=== PATIENT | male | born 1975 | race Caucasian/White ===

== ENCOUNTER 2017-06-11 11:27 | Outpatient (CLI) | payer OTHER | END 2017-06-11 11:28 | disposition home or self-care (01) | LOC: LAB 11:27 | PROVIDERS: ATTEND Emergency Medicine | DX: M05.79 Rheumatoid arthritis with rheumatoid factor of multiple sites without organ or systems involvement (principal); E66.9 Obesity, unspecified | CPT/HCPCS: 36415; 80053; 80061; 85025 ==

== ENCOUNTER 2017-10-02 09:58 | Outpatient (CLI) ==
--- NOTE | 2017-10-02 10:45 | DI ---
EXAM: Two views of the left hip. History: Left hip pain. Findings: No acute fracture or dislocation. No abnormal calcifications or radiopaque foreign bodies . Joint spaces are preserved. Impression: Unremarkable exam
--- NOTE | 2017-10-02 10:50 | DI ---
EXAM: Two views of the right hip. History: Right hip pain. Findings: No acute fracture or dislocation. No abnormal calcifications or radiopaque foreign bodies . Joint spaces are preserved. Impression: Unremarkable exam
--- NOTE | 2017-10-02 10:51 | DI ---
EXAM: Two views of the left knee. History: Left knee pain. Findings: No acute fracture or dislocation. No abnormal calcifications or radiopaque foreign bodies . Joint spaces are preserved. Suggestion of varicose veins. Impression: 1. No acute osseous abnormality and no degenerative joint disease. 2. Probable varicose veins.
--- NOTE | 2017-10-02 10:54 | DI ---
EXAM: Two views of the right knee. History: Right knee pain. Findings: No acute fracture or dislocation. No abnormal calcifications or radiopaque foreign bodies . Joint spaces are preserved. There is suggestion of varicose veins. Impression: 1. No acute osseous abnormality and no degenerative joint disease. 2. Probable varicose veins.
== END 2017-10-02 09:59 | disposition home or self-care (01) ==
LOC: RAD 09:58
PROVIDERS: ATTEND Pain Medicine Interventional Pain Medicine
DX: M25.551 Pain in right hip (principal); M25.552 Pain in left hip; M16.0 Bilateral primary osteoarthritis of hip; M25.561 Pain in right knee; M25.562 Pain in left knee; M17.0 Bilateral primary osteoarthritis of knee

== ENCOUNTER 2019-06-10 23:18 | Observation (INO) ==
[2019-06-10] MEDS ORDERED: ASPIRIN CHEWABLE PO STA (23:48)
--- NOTE | 2019-06-10 23:57 | ED.PDOC ---
General ED Provider: Dr. BENJAMÍN HERNANDEZ Chief Complaint: Chest Pain Stated Complaint: [facility] when his blood pressure was noted to be high in the 240s/160' he had to wait until his blood pressure came down before getting his injections. Tonight he started having chest pain and noted that his blood pressure was still elevated. Time Seen by Physician: 23:35 Mode of Arrival: Walk-In Information Source: Patient and Family Primary Care Provider: DIANNE ARCHER APRN Nursing and Triage Documentation Reviewed and Agree: Yes Does patient meet sepsis criteria?: Yes If yes, has appropriate treatment been initiated?: No System Inflammatory Response Syndrome: Not Applicable Sepsis Protocol: For patient's 13 years and over: Temp is 96.8 and below OR 101 and greater Pulse >90 BPM Resp >20/minute Acutely Altered Mental Status Are patient's symptoms suggestive of a new infection, such as: -Pneumonia -Skin, Soft Tissue -Endocarditis -UTI -Bone, Joint Infection -Implantable Device -Acute Abdominal Infection -Wound Infection -Meningitis -Blood Stream Catheter Infection -Unknown Cardiovascular Complaint Exam Chest Pain Complaint/Exam Onset: Sudden Duration: 1 day Symptoms Are: Still present Timing: Constant Initial Severity: Moderate Current Severity: Mild Location: Reports Midsternal Pain Radiates: Reports Left arm Character: Reports Pressure Aggravating: Reports None Alleviating: Reports None Associated Signs and Symptoms: Denies Diaphoresis, Nausea, Vomiting, Fever, Palpitations, Cough, Hemoptysis, Back pain, Abdominal pain, Dizziness, Short of air, Calf pain and Calf swelling Recent Stress Test: No Recent Echo/LV Function: No JVD Present: No Subcutaneous Emphysema Present: No Diminshed Breath Sounds: No Reproducible Chest Wall Pain: No Bilateral Pulses Present: No Unequal Pulses Noted: No Chest Picture: 1. area of chest pain today. none now If Risk Factors for AMI/ACS Consider: EKG, Cardiac Enzymes, Serial Studies and Aspirin Differential Diagnoses: Acute FL Quality Indicators For Acute FL or Cardiac Chest Pain: EKG in 10min. and ASA if indicated Patient Advised to Stop Smoking: Yes Review of Systems Review Of Systems Constitutional: Reports No symptoms Eyes: Reports No symptoms Ears, Nose, Mouth, Throat: Reports No symptoms Respiratory: Reports No symptoms Cardiac: Reports Chest pain GI: Reports No symptoms : Reports No symptoms Musculoskeletal: Reports No symptoms Skin: Reports No symptoms Neurological: Reports Anxiety Endocrine: Reports No symptoms Hematologic/Lymphatic: Reports No symptoms All Other Systems: Reviewed and Negative PFSH Family History (Updated 06/11/19 @ 00:40 by TIBURCIO BILLY LPN) FATHER Alcoholism Coronary artery arteriosclerosis Mother Brain aneurysm FATHER Heart problem COPD with emphysema Social History Smoking and tobacco status: Never smoker Alcohol intake: current Alcohol intake frequency: holidays/special occasions only Alcohol type: beer Counseling given: No Counseling provided: none Substance use type: does not use Counseling given: No Counseling provided: none Sariah/mormonism: NONE Special sariah needs: No Agree to transfusion: Yes Adopted: No Caregiver/support person: No Foster care: No Household members: friend(s) Housing: house Marital status: X LEGALLY Lives independently: No Daycare: no daycare Number of children: 1 Number of grandchildren: 0 Highest education level completed: 11th grade Financial difficulty paying for basics: somewhat hard service: No longterm: No Current occupational status: disabled Current occupational exposures/hazards: No Pets and animals: No Leisure activites: music and fishing History of recent travel: No Sexually active: No Do you think of yourself as: straight/heterosexual Current gender identity: male Seatbelt use: always Helmet use: No Drives intoxicated or rides with intoxicated route relief driver: No Current diet type/program: regular Well-balanced diet: rarely Caffeine: Yes Eating out: 1-3 times/week Reads food labels: seldom or never During the past year weight has: remained stable Water heater temperature set < 120 degrees: Yes Working smoke detector in home: Yes Fire extinguisher in home: Yes Carbon monoxide detector in home: Yes Firearms in home: No What type of physical activity do you participate in?: walking and other Physical activity functional status: independent ambulation How many days of moderate to strenuous exercise, like a brisk walk, did you do in the last 7 days: 1 Physical Exam Physical Exam Appearance: Reports Ill-appearing and Obese Ill-appearing: Mild Pain Distress: Mild Eyes: Reports TORRES, EOMI and Conjunctiva clear ENT: Reports Nose normal and Oropharynx normal Neck: Supple Respiratory: Reports Airway patent, Breath sounds clear, Breath sounds equal and Breath sounds diminished Cardiovascular: Reports RRR, Pulses normal, No rub and No murmur GI/: Reports Soft, Nontender, No masses and Bowel sounds normal Musculoskeletal: Reports Normal strength, ROM intact and No edema Skin: Reports Warm and Dry Neurological: Reports Sensation intact, Motor intact, Alert and Oriented Psychiatric: Reports Anxious Interpretation Radiology Interpretation Radiology Interpretation By: ED Physician Radiology Results: Negative Exam Interpreted: Portable CXR President And Chief Executive Officer Time of President And Chief Executive Officer Interpretation: 23:52 Rate: Normal Rhythm: Sinus Ectopy: None EKG Interpretation Time of EKG #1: 23:36 Rate: Normal (with sinus Arrythmia) Rhythm: Sinus Ectopy: None [place]: [place] ST Segment: Normal Interpretation: Normal sinus Rhythm with sinus Arrhythmia. Re-Evaluation Re-Evaluation Time of Re-Evaluation: 00:47 Status: Improved Vital Signs Stable: Yes (bp 147/99 after Labetolol) Pain Level: no more pain Physician Notification Case Discussed Physician Notified: Jesenia CAMPBELL Time of Notification: 00:50 Critical Care Note Critical Care Note Total Time (mins): 35 Course Course Hematology/Chemistry: 06/10/19 00:03 06/10/19 00:03 Orders, Labs, Meds: Lab Review 06/10/19 06/10/19 00:03 00:03 WBC 10.54 H RBC 5.70 Hgb 16.4 Hct 48.7 MCV 85.4 MCH 28.8 MCHC 33.7 RDW Coeff of Rachael 12.5 Plt Count 294 Immature Gran % (Auto) 0.5 Neut % (Auto) 88.1 H Lymph % (Auto) 7.7 L [place] % (Auto) 3.5 Eos % (Auto) 0.0 Baso % (Auto) 0.2 Immature Gran # (Auto) 0.1 Neut # (Auto) 9.3 H Lymph # (Auto) 0.8 [place] # (Auto) 0.4 Eos # (Auto) 0.0 Baso # (Auto) 0.0 Sodium 137.6 Potassium 3.87 Chloride 106.1 Carbon Dioxide 23.9 Anion Gap 11.47 BUN 14.3 Creatinine 0.82 Estimated GFR (MDRD) 102.00 BUN/Creatinine Ratio 17.43 Glucose 237.1 H Calcium 9.92 Total Bilirubin 0.45 AST 35.1 ALT 30.5 Alkaline Phosphatase 115.0 Total Creatine Kinase 60.5 Troponin I < 0.012 Total Protein 7.59 Albumin 4.19 Globulin 3.40 Albumin/Globulin Ratio 1.23 Orders Category Date Time Status EKG-(ED ONLY) Stat CARDIO 06/10/19 23:48 Ordered ACTIVITY .Up ad Svetlana CARE 06/11/19 00:21 Active INTAKE & OUTPUT Q8HR CARE 06/11/19 00:20 Active NOTIFY PHYSICIAN OF CONSULT ONCE CARE 06/11/19 00:30 Active VITAL SIGNS Q4HR CARE 06/11/19 00:20 Active CONSULT DOCTOR [PHYSICIAN CONSULTATION] [CONS] Stat CONSULTS 06/11/19 00:30 Ordered 2 GRAM SODIUM DIET DIETARY 06/11/19 Breakfast Ordered ED ACCUCHECK ASSESSMENT .ONCE EMERGENCY 06/11/19 00:42 Active ED CLINICAL SPECIALIST VASCULAR APPLIED .ONCE EMERGENCY 06/10/19 23:48 Active ED IV/MEDIPORT/POWERPORT .ONCE EMERGENCY 06/10/19 23:48 Active IV [ED IV/MEDIPORT/POWERPORT] .ONCE EMERGENCY 06/10/19 23:47 Active BASIC METABOLIC PANEL DAILY@0600 LAB 06/11/19 06:00 Ordered BASIC METABOLIC PANEL DAILY@0600 LAB 06/12/19 06:00 Ordered CBC W/ AUTO DIFF DAILY@0600 LAB 06/11/19 06:00 Ordered CBC W/ AUTO DIFF DAILY@0600 LAB 06/12/19 06:00 Ordered CBC W/ AUTO DIFF Stat LAB 06/10/19 00:03 Completed COMPREHENSIVE METABOLIC PANEL Stat LAB 06/10/19 00:03 Completed CREATINE KINASE Q8H LAB 06/11/19 06:30 Ordered CREATINE KINASE Q8H LAB 06/11/19 14:30 Ordered CREATINE KINASE Stat LAB 06/10/19 00:03 Completed HEMOGLOBIN A1C Routine LAB 06/11/19 00:42 Ordered TROPONIN I Q8H LAB 06/11/19 06:30 Ordered TROPONIN I Q8H LAB 06/11/19 14:30 Ordered TROPONIN I Stat LAB 06/10/19 00:03 Completed TROPONIN I Stat LAB 06/11/19 01:00 Ordered 0.9 % Sodium Chloride [Saline Flush] MEDS 06/10/19 23:47 Active 1 syr IVF PRN PRN 0.9 % Sodium Chloride [Saline Flush] MEDS 06/10/19 23:48 Active 1 syr IVF PRN PRN Acetaminophen [Tylenol] MEDS 06/11/19 00:23 Active 650 mg PO Q4H PRN Aspirin [Aspirin Chewable] MEDS 06/10/19 23:48 Discontinued 324 mg PO ONCE STA Cyclobenzaprine HCl [Flexeril] MEDS 06/11/19 21:00 Ordered 10 mg PO BEDTIME Cyclobenzaprine HCl [Flexeril] MEDS 06/11/19 00:35 Ordered 10 mg PO DAILY PRN Enoxaparin Sodium [Lovenox] MEDS 06/11/19 09:00 Active 40 mg SUBCUT DAILY Fluticasone Propionate [Flonase] MEDS 06/11/19 09:00 Ordered 2 spray NALLELY DAILY Folic Acid MEDS 06/11/19 09:00 Ordered 1 mg PO DAILY Hydrocodone-Acetamin 10-325 Mg MEDS 06/11/19 00:35 Ordered 1 each PO Q4-6H PRN Labetalol HCl [Trandate] MEDS 06/11/19 00:11 Discontinued 10 mg IVP ONCE STA Labetalol HCl [Trandate] MEDS 06/11/19 00:29 Discontinued 5 mg IVP ONCE STA Methotrexate Sodium [Rheumatrex] MEDS 06/11/19 01:00 Ordered 2.5 mg PO 5 tabs once a week Morphine Sulfate [Morphine 2 mg/ml Syringe] MEDS 06/11/19 00:23 Active 2 mg IVP Q4H PRN Ondansetron HCl/Pf [Zofran 4 mg/2 ml] MEDS 06/11/19 00:23 Active 4 mg IVP Q6H PRN Sulfasalazine [Azulfidine] MEDS 06/11/19 09:00 Ordered 1,000 mg PO BID hydrochlorothiazide MEDS 06/11/19 09:00 Ordered 12.5 mg PO DAILY nabumetone MEDS 06/11/19 09:00 Ordered 500 mg PO BID RESUSCITATION STATUS Routine OTHERS 06/11/19 00:18 Ordered CHEST, 1V AP ONLY Stat RADS 06/10/19 23:48 Taken Medications Generic Name Dose Route Start Last Admin Trade Name Freq PRN Reason Stop Dose Admin Acetaminophen 650 mg 06/11/19 00:23 Tylenol PO Q4H PRN fever Cyclobenzaprine HCl 10 mg 06/11/19 00:35 Flexeril PO DAILY PRN Spasms Cyclobenzaprine HCl 10 mg 06/11/19 21:00 Flexeril PO BEDTIME HELEN Enoxaparin Sodium 40 mg 06/11/19 09:00 Lovenox SUBCUT DAILY [facility] Fluticasone Propionate 2 spray 06/11/19 09:00 Flonase NALLELY DAILY [facility] Folic Acid 1 mg 06/11/19 09:00 Folic Acid PO DAILY [facility] Methotrexate 2.5 mg 06/11/19 01:00 Rheumatrex PO 5 tabs once a week [facility] Morphine Sulfate 2 mg 06/11/19 00:23 Morphine 2 Mg/Ml Syringe IVP Q4H PRN Severe Pain Non-Formulary Medication 12.5 mg 06/11/19 09:00 Hydrochlorothiazide PO DAILY [facility] Non-Formulary Medication 1 each 06/11/19 00:35 Hydrocodone-Acetamin 10-325 Mg PO Q4-6H PRN moderate pain Non-Formulary Medication 500 mg 06/11/19 09:00 Nabumetone PO BID [facility] Ondansetron HCl 4 mg 06/11/19 00:23 Zofran 4 Mg/2 Ml IVP Q6H PRN Nausea / Vomiting Sodium Chloride 1 syr 06/10/19 23:47 06/10/19 23:53 Saline Flush IVF 1 syr PRN PRN Administration To flush IV Sodium Chloride 1 syr 06/10/19 23:48 06/11/19 00:28 Saline Flush IVF 1 syr PRN PRN Administration To flush IV Sulfasalazine 1,000 mg 06/11/19 09:00 Azulfidine PO BID [facility] Discontinued Medications Generic Name Dose Route Start Last Admin Trade Name Freq PRN Reason Stop Dose Admin Aspirin 324 mg 06/10/19 23:48 06/10/19 23:53 Aspirin Chewable PO 06/10/19 23:49 324 mg ONCE STA Administration Labetalol HCl 10 mg 06/11/19 00:11 06/11/19 00:28 Trandate IVP 06/11/19 00:12 Not Given ONCE STA Labetalol HCl 5 mg 06/11/19 00:29 06/11/19 00:29 Trandate IVP 06/11/19 00:30 5 mg ONCE STA Administration Vital Signs: Temp Pulse Resp BP Pulse Ox 06/11/19 00:31 71 20 153/97 H 94 L 06/10/19 23:28 98.1 F 94 H 18 204/123 H 97 CHANDNI Risk Score Age >/= 65: No Known CAD (Stenosis >/= 50%): No ASA Use in Past 7 Days: No Severe Angina (>/= 2 episodes in 24 hours): Yes EKG ST Changes >/= 0.5mm: No Postive Cardiac Marker: No CHANDNI Total Score: 1 CHANDNI Risk Score: Risk Score Odds of by 30D 0 0.1 (0.1-0.2) 1 0.3 (0.2-0.3) 2 0.4 (0.3-0.5) 3 0.7 (0.6-0.9) 4 1.2 (1.0-1.5) 5 2.2 (1.9-2.6) 6 3.0 (2.5-3.6) 7 4.8 (3.8-6.1) Discharge Plan Discharge Patient Disposition: HOME SELF-CARE Discharge Problem: Chest pain, Hypertensive crisis Prescriptions: No Action HYDROCODONE-ACETAMIN 10-325 MG 1 EACH tablet 1 ea PO Q4-6H PRN (Reason: Pain) RF: 0 hydrochlorothiazide 12.5 mg Capsule 12.5 mg PO DAILY RF: 0 cyclobenzaprine 10 mg tablet 10 mg PO DAILY PRN (Reason: Spasms) RF: 0 sulfasalazine 500 mg tablet 1,000 mg PO BID RF: 0 cyclobenzaprine 10 mg Tablet 10 mg PO BEDTIME RF: 0 nabumetone 500 mg tablet 500 mg PO BID 30 Days Qty: 60 RF: 2 methotrexate sodium 2.5 mg tablet 2.5 mg PO 5 tabs once a week Qty: 25 RF: 2 fluticasone propionate [Flonase Allergy Relief] 50 mcg/actuation spray,suspension 2 spray intranasal DAILY Qty: 1 RF: 1 folic acid 1 mg tablet 1 mg PO DAILY 30 Days Qty: 30 RF: 2 ED Provider: BENJAMÍN HERNANDEZ Condition: Fair
[2019-06-11 00:09] LABS: HEMATOCRIT 48.7 % (42.0-52.0)
[2019-06-11] MEDS ORDERED: TRANDATE IVP STA ×3 (00:11→16:36)
[2019-06-11] MEDS ORDERED: MORPHINE 2 MG/ML SYRINGE IVP PRN ×2 (00:23→08:18)
[2019-06-11] MEDS ORDERED: TYLENOL PO PRN (00:23)
[2019-06-11] MEDS ORDERED: ZOFRAN 4 MG/2 ML IVP PRN (00:23)
[2019-06-11] MEDS ORDERED: FLEXERIL PO PRN (00:35)
--- NOTE | 2019-06-11 00:56 | DI ---
EXAM: Chest, one-view HISTORY: Chest Pain FINDINGS: Cardiac and mediastinal contours are normal. Pulmonary vasculature is normal. Lungs are clear. Bony thorax is unremarkable. IMPRESSION: Within normal limits
[2019-06-11] MEDS ORDERED: NORCO 10-325 PO PRN (01:16)
[2019-06-11 01:46] VITALS: BMI 48.7
[2019-06-11 06:25] LABS: HEMATOCRIT 47.6 % (42.0-52.0)
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
[2019-06-11] MEDS ORDERED: FLONASE NAS SCH (09:00)
[2019-06-11] MEDS: LOVENOX SUBCUT SCH (09:14)
[2019-06-11] MEDS: RELAFEN PO SCH ×2 (09:16→17:34)
[2019-06-11] MEDS: FOLIC ACID PO SCH (09:16)
[2019-06-11] MEDS: HYDROCHLOROTHIAZIDE PO SCH (09:17)
[2019-06-11] MEDS: AZULFIDINE PO SCH ×2 (09:18→20:24)
--- NOTE | 2019-06-11 10:39 | PCM.CONS ---
CONSULTING PROVIDER: Dr. JENNIFER THOMAS ATTENDING PROVIDER: Dr. JENNY EUGENE DATE OF SERVICE: 06/11/19 SUBJECTIVE: This 43 year old /WHITE M was hospitalized 06/11/19. He was seen on consultation for evaluation of chest pain. The patient developed hypertension in the [facility], Dr. Woods's office yesterday. Systolic was more than 230. In ER the patien twas given Labetalol 10mg. The patient's father has history of DC at a young age. He had gastric sleeve surgery done in 2013. No other significant past medical history. The patient's PCP is Christina Freire. REVIEW OF SYSTEMS: CONSTITUTIONAL: No night sweats. No fatigue, malaise, lethargy. No fever or chills. HEENT: Eyes: No visual changes. No eye pain. No eye discharge. ENT: No runny nose. No epistaxis. No sinus pain. No odynophagia. No congestion. RESPIRATORY: No cough, no congestion. No hemoptysis. No shortness of breath. CARDIOVASCULAR: No angina symptoms. No CHF symptoms. No atypical chest pain for CAD. No palpitations. No orthopnea. GASTROINTESTINAL: No abdominal pain. No nausea or vomiting. No diarrhea or constipation. No hematemesis. No hematochezia. GENITOURINARY: No urgency. No frequency. No dysuria. No hematuria. No obstructive symptoms. No discharge. No pain. No significant abnormal bleeding. MUSCULOSKELETAL: No musculoskeletal pain; no joint swelling. NEUROLOGICAL: Awake, alert, oriented to time, place and person. No headache. No neck pain. No syncope. No seizures. No dizziness. PSYCHIATRIC: Not anxious. No depression. No suicidal thoughts. No homicidal thoughts. SKIN: No rash. No lesions. No wounds. ENDOCRINE: No unexplained weight loss. No weight gain. HEMATOLOGIC/LYMPHATIC: No anemia. No purpura. No petechiae. No prolonged or exce ssive bleeding. No palpable lymph nodes. PHYSICAL EXAMINATION: GENERAL: The patient is awake, alert and oriented, lying in bed in no distress. VITAL SIGNS: Temperature 97.8 F, Pulse 57, Respiratory Rate 18, BP 120/64, Pulse Ox 98% HEENT: Head normocephalic, atraumatic. Eyes: Extraocular muscles are intact. Pupils are equal, round and reactive to light and accommodation. Ears: No lesions. Nose appeared normal. Throat: No exudate or erythema. NECK: Supple. No JVD, no carotid bruit. No lymphadenopathy or thyromegaly. LUNGS: Clear to auscultation. Percussion note normal. Chest symmetrical. HEART: S1, S2, no S3. No murmurs. No cyanosis or clubbing. No ascites. Pulses: Dorsalis pedis and posterior tibial pulses +2 both sides, strong. EKG was sinus rhythm. No acute changes Cardiac markers are negative. Lipid profile unknown. ABDOMEN: Protuberant. Soft. Non-tender. Bowel sounds active. No CVA tenderness. No mass felt. EXTREMITIES: No edema. Full range of motion of all extremities, equal. NEUROLOGIC: No focal deficit. Cranial nerves II through XII are grossly intact. No headache, no double vision or headache. SKIN: Warm and dry. Intact. Turgor-normal. LYMPHATIC: No palpable lymph nodes/no lymphedema. MUSCULOSKELETAL: Normal joints with no swelling. Muscle tone is normal. LAB REVIEW: 06/11/19 06:16 06/11/19 06:16 06/11/19 06:16: Sodium 137.7, Potassium 3.60, Chloride 104.8, Carbon Dioxide 25.7, Anion Gap 10.80, BUN 13.3, Creatinine 0.72, Estimated GFR (MDRD) 119.00, BUN/Creatinine Ratio 18.47, Glucose 182.0 H, Calcium 9.29, Total Creatine Kinase 45.7 L, Troponin I < 0.012 06/11/19 06:16: WBC 10.32 H, RBC 5.57, Hgb 15.7, Hct 47.6, MCV 85.5, MCH 28.2, MCHC 33.0, RDW Coeff of Rachael 12.6, Plt Count 280, Immature Gran % (Auto) 0.2, Neut % (Auto) 79.1 H, Lymph % (Auto) 14.9, [place] % (Auto) 5.4, Eos % (Auto) 0.1, Baso % (Auto) 0.3, Immature Gran # (Auto) 0.0, Neut # (Auto) 8.2 H, Lymph # (Aut o) 1.5, [place] # (Auto) 0.6, Eos # (Auto) 0.0, Baso # (Auto) 0.0 06/11/19 00:03: Hemoglobin A1c 6.97 H 06/10/19 00:03: Sodium 137.6, Potassium 3.87, Chloride 106.1, Carbon Dioxide 23.9, Anion Gap 11.47, BUN 14.3, Creatinine 0.82, Estimated GFR (MDRD) 102.00, BUN/Creatinine Ratio 17.43, Glucose 237.1 H, Calcium 9.92, Total Bilirubin 0.45, AST 35.1, ALT 30.5, Alkaline Phosphatase 115.0, Total Creatine Kinase 60.5, Troponin I < 0.012, Total Protein 7.59, Albumin 4.19, Globulin 3.40, Albumin/Globulin Ratio 1.23 06/10/19 00:03: WBC 10.54 H, RBC 5.70, Hgb 16.4, Hct 48.7, MCV 85.4, MCH 28.8, MCHC 33.7, RDW Coeff of Rachael 12.5, Plt Count 294, Immature Gran % (Auto) 0.5, Neut % (Auto) 88.1 H, Lymph % (Auto) 7.7 L, [place] % (Auto) 3.5, Eos % (Auto) 0.0, Baso % (Auto) 0.2, Immature Gran # (Auto) 0.1, Neut # (Auto) 9.3 H, Lymph # (Auto) 0.8, [place] # (Auto) 0.4, Eos # (Auto) 0.0, Baso # (Auto) 0.0 ASSESSMENT: 1. Chest pain seems to be non-cardiac, left shoulder and left upper part of the chest. Tender to touch. Atypical for coronary insufficiency. 2. Morbid obesity 3. Diabetes Mellitus 4. Hypertension 5. Strong family history of heart disease 6. Gastric sleeve surgery 2013 RECOMMENDATIONS/PLAN: 1. Echo and stress echo 2. Lipid profile 3. Counseling done for modifications for coronary artery disease and risk factors. Plan and coordination of the patient's care discussed in the presence of Form Builder Helper and Nurse. Thanks for referral, will follow. SCRIBED BY: ROMEO ULLOA, Daycare Provider scribed while in presence of service performed by Dr. JENNIFER THOMAS on 06/11/19 ([id number])
--- NOTE | 2019-06-11 11:28 | PCM.PROG ---
During patient interview and exam this AM patient was confirmed a "full code" status as per ER admission and review of ACLS protocol. Patient had no other concerns or questions in regards to this subject and is currently improving.
--- NOTE | 2019-06-11 14:42 | PCM.PROG ---
Dr. Brain Greco, swabber, here after ECHO and stress test completed; notes findings suggestive of Normal Borderline Hypertrophic Cardiomyopathy w/ normal EF. Per Dr. Greco, we will con't HCTZ 12.5mg daily and add Losartan 50mg PO QAM and Pravachol 20mg PO Q HS. Will need Metformin when sees PCP for f-u appt. and treatment for diabetes as discussed w/ PCP. Patient to f-u w/ PCP and then w/ Learning Support Specialist only prn.
--- NOTE | 2019-06-11 15:05 | STRESSMOD ---
Date of Test: 06/11/19 Ordering Physician: JENNY GREENWOOD APRN/ [facility] Reason for Exam: CHEST PAIN, HTN, DM 2 Height: 72" Weight: 359 LBS Current Medications: FLEXERIL, LOVENOX, FLONASE, HCTZ, NORCO, HUMULIN R, MORPHINE, RELAFEN, ZOFRAN Resting EKG: SINUS RHYTHM/ NO ACUTE CHANGES Target Heart Rate: 149/176 S-T SEGMENT STAGE MPH/GRADE HEART RATE BPM BLOOD PRESSURE mmhg RHYTHM +/- ELEVATION DEPRESSION SYMPTOMS At Rest 68 BPM 134/86 MMHG SR X NONE 1 1.7/0% 96 BPM 158/76 MMHG SR X NONE 2 1.7/5% 110 BPM 168/72 MMHG SR X NONE 3 1.7/10% 128 BPM 174/64 MMHG SR X NONE 4 2.5/12% 5 3.4/14% Immediately After 145 BPM 184/74 MMHG SR X FATIGUE Minutes Post Exercise 5:00 84 BPM 158/78 MMHG SR X NONE Minutes Post Exercise DURATION OF EXERCISE: 10:18 MAXIMUM HEART RATE REACHED: 145 BPM REASON FOR TERMINATION: FATIGUE 99% OXYGEN SATURATION WITH EXERCISE ON ROOM AIR METS 7.0 INTERPRETATION: 1. NO EVIDENCE OF ISCHEMIA BY ST-T WAVE 2. NO CHEST PAIN OR DISCOMFORT 3. NO ARRHYTHMIAS 4. BLOOD PRESSURE RESPONSE NORMAL NORMAL LEFT VENTRICULAR CONTRACTILITY--RESTING AND POST EXERCISE MTDD
[2019-06-11] MEDS: COZAAR PO SCH (15:37)
[2019-06-11] MEDS: ASPIRIN EC PO SCH (15:37)
[2019-06-11] MEDS ORDERED: HUMULIN R SUBCUT SCH (17:00)
[2019-06-11] MEDS: HUMULIN R SUBCUT PRN ×2 (17:36→21:20)
[2019-06-11] MEDS ORDERED: FLEXERIL PO SCH (21:00)
[2019-06-11] MEDS ORDERED: PRAVACHOL PO SCH (21:00)
[2019-06-12 05:17] VITALS: BP 132/85; TEMP 97.5
[2019-06-12 05:55] LABS: HEMATOCRIT 49.3 % (42.0-52.0)
[2019-06-12] MEDS: FOLIC ACID PO SCH (08:38)
[2019-06-12] MEDS: AZULFIDINE PO SCH (08:38)
[2019-06-12] MEDS: HYDROCHLOROTHIAZIDE PO SCH (08:38)
[2019-06-12] MEDS: RELAFEN PO SCH (08:38)
[2019-06-12] MEDS: COZAAR PO SCH (08:38)
[2019-06-12] MEDS: ASPIRIN EC PO SCH (08:38)
[2019-06-12] MEDS: LOVENOX SUBCUT SCH (08:38)
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
--- NOTE | 2019-06-14 12:58 | ECHO2D ---
Date of Exam: 06/11/2019 Ordering Physician: JENNY GREENWOOD-HOSPITALIST Room #: 115 Reason for Echo: CHEST PAIN, HTN, DM M-Mode Normal Adult Results LV Dimensions Normal Adult Results AoV Opening excursions >1.6 >1.6 LVEDD-base- 3.5-5.8 5.7 Ao root dimensions 2.0-3.7 3.8 LVESD-base- 3.1-4.6 L. Atrium dimensions 1.9-3.8 5.0 Post. Wall thickness 0.8-1.1 1.3 IV septum (thickness) 0.7-1.2 1.3 Post. Wall excursion 0.72-1.3 NORMAL Septal motion NORMAL Systolic motion R. Ventricular cavity 1.5-2.0 NORMAL LVEF 60% 55% Paradoxical septal wall motion NORMAL 2-D : 2-D M Mode Echocardiogram was performed using apical four chamber and left parasternal long and short axis views. Mitral, tricuspid and aortic valves appear to be normal. Contractility of the left ventricle seems to be normal, so is the cavity size. ENLARGED LEFT ATRIAL CAVITY SIZE. Aortic root appears to be normal. There is no pericardial effusion. There is no thrombus noted in the left ventricle or left atrial cavity. No mitral valve prolapse noted. BORDERLINE LEFT VENTRICLE CAVITY. M-MODE: MV: NORMAL AV: NORMAL TV: NORMAL PV: CHAMBER SIZE: ENLARGED LEFT ATRIAL CAVITY SIZE, BORDERLINE LEFT VENTRICLE CAVITY WALL MOTION: NORMAL PERICARDIUM: NORMAL INTERPRETATION: 1. LEFT VENTRICLE HYPERTROPHY WITH ENLARGED LEFT ATRIAL CAVITY (5.0 CM) 2. BORDERLINE LEFT VENTRICLE CAVITY 3. NORMAL VALVES 4. NORMAL LEFT VENTRICLE CONTRACTILITY MTDD
--- NOTE | 2019-06-14 13:35 | ECHOSTRESS ---
Date of Exam: 06/11/2019 Ordering Physician: JENNY GREENWOOD--HOSPITALIST Reason for Echo: CHEST PAIN, HTN, DM, STRESS TEST--NO ISCHEMIA M-Mode Normal Adult Results LV Dimensions Normal Adult Results AoV Opening excursions >1.6 LVEDD-base- 3.5-5.8 Ao root dimensions 2.0-3.7 LVESD-base- 3.1-4.6 L. Atrium dimensions 1.9-3.8 Post. Wall thickness 0.8-1.1 IV septum (thickness) 0.7-1.2 Post. Wall excursion 0.72-1.3 Septal motion Systolic motion R. Ventricular cavity 1.5-2.0 LVEF 60% Paradoxical septal wall motion 2-D: NORMAL LEFT VENTRICULAR CONTRACTILITY--RESTING AND POST EXERCISE M-MODE: MV: AV: TV: PV: CHAMBER SIZE: NORMAL LEFT VENTRICULAR CONTRACTILITY--RESTING AND POST EXERCISE WALL MOTION: PERICARDIUM: INTERPRETATION: 1. NORMAL LEFT VENTRICULAR CONTRACTILITY--RESTING AND POST EXERCISE MTDD
[2019-06-15] MEDS ORDERED: RHEUMATREX PO SCH (09:00)
--- NOTE | 2019-06-15 09:52 | PN ---
06/11/2019: Extensive Level 5 MTDD
--- NOTE | 2019-06-15 10:14 | CONS ---
DATE OF SERVICE: 06/11/2019 CONSULT FOLLOWUP SUBJECTIVE: The patient was hospitalized with fairly atypical chest pain left sided more on movement of the shoulder. Later on in the afternoon after ruling out the patient acute myocardial event with normal EKG's and cardiac markers. The patient underwent echocardiogram which showed LVH and borderline LV cavity enlargement and enlarged LA cavity. Ejection fraction was normal. The patient exercised on modified Luca Protocol, fairly good exercise tolerance with METS level more than 8. No ST-T wave change. Blood pressure response was borderline no arrhythmias were noted. No ST-T wave changes were noted. Post exercise echo showed normal LV contractility. REVIEW OF SYSTEMS: CONSTITUTIONAL: No night sweats. No fatigue, malaise, lethargy. No fever or chills. HEENT: Eyes: No visual changes. No eye pain. No eye discharge. ENT: No runny nose. No epistaxis. No sinus pain. No sore throat. No odynophagia. No ear pain. No congestion. RESPIRATORY: No cough, no congestion. No hemoptysis. CARDIOVASCULAR: No angina symptoms. No CHF symptoms. No atypical chest pain for CAD. No palpitations. No shortness of breath. GASTROINTESTINAL: No abdominal pain. No nausea or vomiting. No diarrhea or constipation. No hematemesis. No hematochezia. GENITOURINARY: No urgency. No frequency. No dysuria. No hematuria. No obstructive symptoms. No discharge. No pain. No significant abnormal bleeding. MUSCULOSKELETAL: No musculoskeletal pain. No joint swelling. No arthritis. NEUROLOGICAL: No headache. No neck pain. No syncope. No seizures. No dizziness. PSYCHIATRIC: Not anxious. No depression. No suicidal thoughts. No homicidal thoughts. SKIN: No rash. No lesions. No wounds. ENDOCRINE: No unexplained weight loss. No weight gain. HEMATOLOGIC/LYMPHATIC: No anemia. No purpura. No petechiae. No prolonged or excessive bleeding. No palpable lymph nodes. PHYSICAL EXAMINATION: HEENT: Head normocephalic, atraumatic. Eyes: Extraocular muscles are intact. Pupils are equal, round and reactive to light and accommodation. Ears: No lesions. Nose appeared normal. Throat: No exudate or erythema. NECK: Supple. No JVD, no carotid bruit. No lymphadenopathy or thyromegaly. LUNGS: Clear to auscultation. Percussion note normal. Chest symmetrical. HEART: S1, S2, no S3. No murmur. No cyanosis or clubbing. No ascites. Pulses: Dorsalis pedis and posterior tibial pulses +1 to +2 bilaterally. ABDOMEN: Soft. Nontender. Bowel sounds active. No CVA tenderness. No mass felt. EXTREMITIES: No edema. Full range of motion of all extremities, equal. NEUROLOGIC: No focal deficit. Cranial nerves II through XII are grossly intact. No headache, no double vision or headache. SKIN: Not dry. Intact. Turgor - normal. LYMPHATIC: No palpable lymph nodes/no lymphedema. MUSCULOSKELETAL: Normal joints with no swelling. Muscle tone is normal. ASSESSMENT: 1. Chest pain- noncardiac with negative cardiac markers, EKG's and stress exercise echo with treadmill test. RECOMMENDATIONS: 1. The patient has lost from 600 pounds to 350. Advised to continue to go to the gym like he is doing three days a week. The patient has good exercise tolerance. The patient is advised to continue to lose weight. Counseling for diet done. 2. Pravachol 20mg daily. The patient's LDL is 115 with Diabetes Mellitus. The goal should be LDL of 70 or NON-HDL of 100. 3. The patient needs to be on ARB chang inhibitor with diabetes with hypertension. The patient is going to be on Hyzaar 50-12.5mg PO daily 4. Counseling for diet done to lose weight. The patient seems to be motivated. MTDD
--- NOTE | 2019-06-15 10:54 | PCM.CONS ---
CONSULTING PROVIDER: Dr. JENNIFER THOMAS ATTENDING PROVIDER: Dr. JENNY EUGENE DATE OF SERVICE: 06/15/19 SUBJECTIVE: This 43 year old /WHITE M was hospitalized 06/11/19. This 43 year old /White M was hospitalized 06/11/19. He was seen on consultation for evaluation of chest pain. The patient developed hypertension [facility], DR. Woods's office yesterday. Systolic was more than 230. In ER the patient was given Labetaolol 10mg. The patient's father has history of RI at a young age. He had gastric sleeve surgery done in 2013. No other significant past medical history. The patient's PCP is Christina Freire. REVIEW OF SYSTEMS: CONSTITUTIONAL: No night sweats. No fatigue, malaise, lethargy. No fever or chills. HEENT: Eyes: No visual changes. No eye pain. No eye discharge. ENT: No runny nose. No epistaxis. No sinus pain. No odynophagia. No congestion. RESPIRATORY: No cough, no congestion. No hemoptysis. No shortness of breath. CARDIOVASCULAR: No angina symptoms. No CHF symptoms. No atypical chest pain for CAD. No palpitations. No orthopnea. GASTROINTESTINAL: No abdominal pain. No nausea or vomiting. No diarrhea or constipation. No hematemesis. No hematochezia. GENITOURINARY: No urgency. No frequency. No dysuria. No hematuria. No obstructive symptoms. No discharge. No pain. No significant abnormal bleeding. MUSCULOSKELETAL: No musculoskeletal pain; no joint swelling. NEUROLOGICAL: Awake, alert, oriented to time, place and person. No headache. No neck pain. No syncope. No seizures. No dizziness. PSYCHIATRIC: Not anxious. No depression. No suicidal thoughts. No homicidal thoughts. SKIN: No rash. No lesions. No wounds. ENDOCRINE: No unexplained weight loss. No weight gain. HEMATOLOGIC/LYMPHATIC: No anemia. No purpura. No petechiae. No prolonged or excessive bleeding. No palpable lymph nodes. PHYSICAL EXAMINATION: GENERAL: The patient is awake, alert and oriented, lying in bed in no distress. VITAL SIGNS: Temperature 97.8 F, Pulse 57, Respiratory Rate 18, BP 120/64, Pulse Ox 98% HEENT: Head normocephalic, atraumatic. Eyes: Extraocular muscles are intact. Pupils are equal, round and reactive to light and accommodation. Ears: No lesions. Nose appeared normal. Throat: No exudate or erythema. NECK: Supple. No JVD, no carotid bruit. No lymphadenopathy or thyromegaly. LUNGS: Clear to auscultation. Percussion note normal. Chest symmetrical. HEART: S1, S2, no S3. No murmurs. No cyanosis or clubbing. No ascites. Pulses: Dorsalis pedis and posterior tibial pulses +2 both sides. ABDOMEN: Soft. Non-tender. Bowel sounds active. No CVA tenderness. No mass felt. EXTREMITIES: No edema. Full range of motion of all extremities, equal. NEUROLOGIC: No focal deficit. Cranial nerves II through XII are grossly intact. No headache, no double vision or headache. SKIN: Warm and dry. Intact. Turgor-normal. LYMPHATIC: No palpable lymph nodes/no lymphedema. MUSCULOSKELETAL: Normal joints with no swelling. Muscle tone is normal. LAB REVIEW: 06/11/19 06:16 WBC 10.32, hgb 15.7, hct 47.6 and plt count 280. Sodium 137.7, potassium 3.60, Chloride 104.8, Bicarb 25.7, BUN 13.3, creatinine 0.72 and glucose 182.0. 06/11/19 06:16: Sodium 137.7, Potassium 3.60, Chloride 104.8, Carbon dioxide 25.7, Anion Gap 10.80, BUN 13.3, Creatinine 0.72, Estimated GFR (MDRD) 119.00, BUN/Creatinine Ratio 18.47, Glucose 182.0 H, Calcium 9.29, Total Creatinine Kinase 45.7L, Troponin I<0.012 06/11/19 06:16: WBC 10.32H, RBC 5.57, Hgb 15.7, Hct 47.6, MCV 85.5, MCH 28.2, MCHC 33.0, RDW COEFF of [place] 12.6, Plt count 280, Immature Gran% (Auto) 0.2, Neut% (AUTO) 79.1H, Lymph% (Auto) 14.9, MONO% 5.4, Eos% (AUTO) 0.1, BASO% (AUTO)0.3, Immature Gran # (AUTO)0.0, Neut#(AUTO)8.2H, Lymph# (AUTO)1.5, [place]# (AUTO) 0.6, EOS#(AUTO)0.0, Baso# (AUTO) 0.0 06/11/2019 00:03: Hemoglobin A1c 6.97H 06/10/2019 00:03: Sodium 137.6, Potassium 3.87, [place] 106.1, Carbon Dioxide 23.9, Anion Gap 11.47, BUN 14.3, creatinine 0.82, Estimated GFR (MDRD) 102.00, BUN /Creatinine Ratio 17.43, Glucose 237.1H, [place] 9.92, Total Bilirubin 0.45, AST 35.1, ALT 30.5, Alkaline phosphatase 115.0, Total Creatinine Kinase 60.5, Troponin I <0.012, [place] Protein 7.59, Albumin 4.19, Globulin 3.40, Albumin/Globulin Ration 1.23 06/10/19: 00:03: WBC 10.54, RBC 5.70, Hgb 16.4, Hct 48.74, MCV 85.4, MCH 28.8, MCHC 33.7, RDW Coeff of Car 12.5, Plt count 294, Immature Gran % (Auto)0.5, Neut% (AUTO) 88.1 H, Lymph% (AUTO) 77.7L, [place]% (AUTO) 3.5, Eos% (AUTO)0.0, BASO% (AUTO) 0.4, Eos# (AUTO) 0.0, BASO# (AUTO) 0.0 ASSESSMENT: 1. Chest pain seems to be non-cardiac, left shoulder and left upper part of the chest. Tender to touch. Atypical for coronary insufficiency. 2. Morbid obesity 3. Diabetes Mellitus 4. Hypertension 5. Strong family history of heart disease 6. Gastric sleeve surgery 2013 Please see below. RECOMMENDATIONS/PLAN: 1. Echo and stress echo 2. Lipid profile 3. Counseling done for modifications for coronary artery disease and risk factors. Plan and coordination of the patient's care discussed in the presence of Art Education Professor and Nurse. Thanks for referral, will follow. SCRIBED BY: ROMEO ULLOA, Vice President [employer] scribed while in presence of service performed by Dr. JENNIFER THOMAS on 06/11/19 ([id number])
--- NOTE | 2019-06-15 11:26 | PCM.PROG ---
Patient called for f-u post hospitalization. States he went to his appt. yesterday w/ Ms JELANI Freire and his BP was doing good 130/80. He denies dizziness, headaches, CP, palpitations, SOB, or other new symptoms. Taking his medication as directed and continues w/ his gym routine 3-4 times/week. No questions or concerns.
--- NOTE | 2019-06-15 14:27 | CONS ---
DATE OF CONSULTATION: 06/11/19 REASON FOR CONSULTATION: Left-sided chest pain, numbness, left shoulder and arm at rest, unrelated to exertion, more with m ovement. Duration for a few days. HISTORY OF PRESENT ILLNESS: 43-year-old patient follows with Dr. Hubbard every 2 months, steroids bilateral knees (2-20). His injections were delayed due to blood pressure 240's/160's. No treatment except for 20-30 minutes relaxation with reading then 164/102. He went home then had chest pain. REVIEW OF SYSTEMS: CONSTITUTIONAL: No night sweats. No fatigue, malaise, lethargy. No fever or chills. HEENT: Eyes: No visual changes. No eye pain. No eye discharge. ENT: No sinus drainage. No epistaxis. No sinus pain. No sore throat. No odynophagia. No ear pain. No congestion. RESPIRATORY: No cough, no congestion. No hemoptysis. No shortness of breath. CARDIOVASCULAR: Angina symptoms none after admit. No CHF symptoms. Atypical chest pain. No palpitations. No orthopnea. GASTROINTESTINAL: No abdominal pain. No nausea or vomiting. No diarrhea or constipation. No hematemesis. No hematochezia. GENITOURINARY: No urgency. No frequency. No dysuria. No hematuria. No obstructive symptoms. No discharge. No pain. No significant abnormal bleeding. MUSCULOSKELETAL: No musculoskeletal pain. No joint swelling. NEUROLOGICAL: No headache. No neck pain. No syncope. No seizures. No dizziness. PSYCHIATRIC: Not anxious. No depression. No suicidal thoughts. No homicidal thoughts. SKIN: No rash. No lesions. No wounds. ENDOCRINE: No unexplained weight loss. No weight gain. HEMATOLOGIC/LYMPHATIC: No anemia. No purpura. No petechiae. No prolonged or excessive bleeding. No palpable lymph nodes. MEDICATIONS: Methotrexate [place] Folic Acid Flonase Nasal [place] Sulfasalazine Nabumetone Cyclobenazaprine at bedtime and p.r.n. Hydrochlorothiazide ALLERGIES: NKDA PAST MEDICAL HISTORY: Rheumatoid arthritis Obesity PAST SURGICAL HISTORY: Bariatric surgery - gastric sleeve 2014 Cholecystectomy SOCIAL/PERSONAL/FAMILY HISTORY: Smoking history - one cigar per week. Alcohol use - five to six beers a year. PHYSICAL EXAMINATION: VITAL SIGNS: Pulse 57, BP 120/64, temperature 97.8, 02 sat 98 on room air. Weight 362 lbs, Height 6'1". Age 43. GENERAL: Awake, alert, oriented times four. HEENT: Head normocephalic, atraumatic. Eyes: Extraocular muscles are intact. Pupils are equal, round and reactive to light and accommodation. Ears: No lesions. Nose appeared normal. Throat: No exudate or erythema. NECK: Supple. No JVD, no carotid bruit. No lymphadenopathy or thyromegaly. LUNGS: Clear to auscultation. Percussion note normal. Chest symmetrical. HEART: S1, S2, no S3. No murmurs. No cyanosis or clubbing. No ascites. Pulses: Dorsalis pedis and posterior tibial pulses +1 to +2 bilaterally. ABDOMEN: Soft. Nontender. Last bowel movement 06/10/19 within normal limits. Bowel sounds active. No CVA tenderness. No mass felt. EXTREMITIES: No edema. Full range of motion of all extremities, equal. NEUROLOGIC: No focal deficit. Cranial nerves II through XII are grossly intact. No headache, no double vision or headache. SKIN: Dry and intact. Turgor - normal. LYMPHATIC: No palpable lymph nodes/no lymphedema. MUSCULOSKELETAL: Normal joints with no swelling. Muscle tone is normal. LABS: Glucose 237.1 and 182.0, A1C 6.97. 06/10/19 total creatinine K. (0003 60.5; 06/11 (0616) 45.7. Troponin less than 0.012 06/10/19; less than 0-012 06/11/19. WBC 06/10 10.54. 06/11 10.32. 06/10 Chest x-ray within normal limits. 06/11/19 0616 Triglyceride 68.0, cholesterol 166.5, LDL 112, VLDL 14, HDL 40.9, cholesterol 4.1. From a.m. blood. ASSESSMENT: 1. CHEST PAIN, ATYPICAL FOR CORONARY INSUFFICIENCY. 2. MORBID OBESITY STATUS POST GASTRIC SLEEVE, 2013. 3. DIABETES MELLITUS TYPE 2. 4. DYSLIPIDEMIA. 5. HYPERTENSION. PLAN/RECOMMENDATIONS: 1. Add Statin - Pravachol. 2. Add ARB - Losartan. 3. Baby Aspirin. 4. Continue going to gym. 5. Echo resting and stress echo. 6. Continue routine telemetry orders. Thanks for the referral, will follow. COLBY
== END 2019-06-12 10:37 | disposition home or self-care (01) ==
LOC: ED 23:27 → MEDSURG B 23:27
PROVIDERS: ADMIT Nurse Practitioner Family; ATTEND Nurse Practitioner Family
DX: E66.01 Morbid (severe) obesity due to excess calories; R07.9 Chest pain, unspecified; Z68.42 Body mass index [BMI] 45.0-49.9, adult; I16.9 Hypertensive crisis, unspecified; R35.0 Frequency of micturition; Z79.899 Other long term (current) drug therapy; Z72.0 Tobacco use; R42 Dizziness and giddiness; M06.9 Rheumatoid arthritis, unspecified; R73.9 Hyperglycemia, unspecified; M79.602 Pain in left arm; G89.4 Chronic pain syndrome; Z98.84 Bariatric surgery status